=== PATIENT | male | born 1980 ===

== ENCOUNTER 2018-04-16 13:55 | Inpatient (IN) ==
[2018-04-16] MEDS ORDERED: ONDANSETRON 4 MG/2 ML VIAL IV STA (14:52)
[2018-04-16] MEDS ORDERED: HYDROmorphone 2 MG/1 ML VIAL IV STA (14:52)
[2018-04-16] MEDS ORDERED: SODIUM CHLORIDE 0.9% 500 ML IV STA (14:52)
[2018-04-16 15:55] LABS: Basophils # 0.1 10*3/uL (0.0-0.2); Basophils % 0.2 % (0.0-0.8); Hematocrit 42.2 VOL% (42.0-52.0); Hemoglobin 14.6 GM/DL (14.0-18.0); Immature Granulocytes % 1.2 %; Immature Granulocytes Absolute 0.32 #; Lymphocytes # 0.9 10*3/uL (1.4-4.0); Lymphocytes % 3.2 % (21.2-54.2); Mean Corpuscular HGB Conc 34.6 GM/DL (32-36); Mean Corpuscular Hemoglobin 32 PG (27-34); Mean Corpuscular Volume 91.1 FL (87-102); Mean Platelet Volume 10.5 FL (9.6-12.0); Monocytes # 1.2 10*3/uL (0.11-0.8); Monocytes % 4.5 % (1.7-12.7); Neutrophils # 24.6 10*3/uL (1.4-7.4); Neutrophils % 90.9 % (38.7-73.9); Platelet Count 212 T/CUMM (130-400); Red Blood Count 4.63 MC/CUMM (3.8-5.5); Red Cell Distribution Width 13.1 % (9.3-17.3); White Blood Count 27.1 T/CUMM (4-12)
[2018-04-16 16:17] LABS: Albumin 3.2 G/DL (3.4-5.0); Bilirubin,Total 0.6 MG/DL (0.2-1.0); Calcium 8.5 MG/DL (8.5-10.1); Lactic Acid 1.3 MMOL/L (0.4-2.0); Osmolality,Calculated 274.1 MOS/KG (273-304); Potassium 3.8 MMOL/L (3.5-5.1)
[2018-04-16 16:21] LABS: Apearance,Urine CLEAR (Clear); Bilirubin,Urine Negative (Negative); Blood, Urine Negative (Negative); Glucose,Urine (UA) Negative (Negative); Ketones,Urine 5 mg/dL (Negative); Mucus,Urine Occasional /LPF (Occasional); Nitrite,Urine Negative (Negative); Protein,Urine 30 MG/DL; RBC,Urine 1 /HPF (0-4); Urine Color Yellow (Yellow); Urine Specific Gravity 1.019 (1.001-1.035); WBC,Urine 10 /HPF (0-6)
[2018-04-16 17:02] LABS: Lymphocytes 2 % (20-55); Platelet Estimate Normal; Polychromasia Few; Segmented Neutrophils 96 % (50-85); Total Cells Counted 100
[2018-04-16] MEDS ORDERED: HYDROmorphone 2 MG/1 ML VIAL IV PRN (17:12)
[2018-04-16] MEDS ORDERED: ACETAMINOPHEN 500 MG TABLET PO PRN (17:12)
[2018-04-16] MEDS ORDERED: ONDANSETRON 4 MG/2 ML VIAL IV PRN (17:12)
[2018-04-16] MEDS ORDERED: DEXTROSE 50% 25 GM/50 ML VIAL IV PRN (17:12)
[2018-04-16] MEDS ORDERED: GLUCAGON 1 MG VIAL IM PRN (17:12)
[2018-04-16] MEDS ORDERED: cefTRIAXone 1,000 MG VIAL ONE (17:36)
[2018-04-16] MEDS: cefTRIAXone 1,000 MG in SYRINGE 1 EACH IV SCH (17:39)
[2018-04-16] MEDS: SODIUM CHLORIDE 0.9% 1,000 ML IV SCH (17:39)
[2018-04-16 17:57] LABS: INR 1.4; PT Patient Result 14.7 SECS
[2018-04-16] MEDS: CLINDAMYCIN INJ 300 MG in PREMIX 1 EACH IV SCH (18:06)
[2018-04-16] MEDS: INSULIN REGULAR 100 UNIT/ML SUBCUT SCH (18:23)
[2018-04-16] MEDS: AMOXICILLIN/CLAV 875 MG TABLET PO SCH (20:26)
[2018-04-16] MEDS: DEXAMETHASONE 10 MG/1 ML VIAL IV SCH (21:41)
[2018-04-17] MEDS: INSULIN REGULAR 100 UNIT/ML SUBCUT SCH ×4 (00:13→18:15)
[2018-04-17] MEDS: CLINDAMYCIN INJ 300 MG in PREMIX 1 EACH IV SCH ×3 (01:01→18:16)
[2018-04-17] MEDS: cefTRIAXone 1,000 MG in SYRINGE 1 EACH IV SCH (06:22)
[2018-04-17] MEDS: DEXAMETHASONE 10 MG/1 ML VIAL IV SCH ×3 (06:23→21:07)
[2018-04-17 06:24] LABS: Basophils % 0.1 % (0.0-0.8); Hematocrit 41.9 VOL% (42.0-52.0); Hemoglobin 14.7 GM/DL (14.0-18.0); Immature Granulocytes % 1.1 %; Immature Granulocytes Absolute 0.32 #; Lymphocytes # 1.1 10*3/uL (1.4-4.0); Lymphocytes % 3.8 % (21.2-54.2); Mean Corpuscular HGB Conc 35.1 GM/DL (32-36); Mean Corpuscular Hemoglobin 31 PG (27-34); Mean Platelet Volume 10.7 FL (9.6-12.0); Monocytes # 1.1 10*3/uL (0.11-0.8); Monocytes % 3.8 % (1.7-12.7); Neutrophils # 25.6 10*3/uL (1.4-7.4); Neutrophils % 91.2 % (38.7-73.9); Platelet Count 233 T/CUMM (130-400); Red Blood Count 4.71 MC/CUMM (3.8-5.5); White Blood Count 28.1 T/CUMM (4-12)
[2018-04-17] MEDS: SODIUM CHLORIDE 0.9% 1,000 ML IV SCH ×2 (06:28→15:22)
[2018-04-17 06:45] LABS: Osmolality,Calculated 277.8 MOS/KG (273-304); Potassium 3.7 MMOL/L (3.5-5.1)
[2018-04-17 06:46] LABS: Band Neutrophils 3 % (0-10); Hypochromasia Slight; Lymphocytes 2 % (20-55); Platelet Estimate Adequate; Segmented Neutrophils 87 % (50-85); Total Cells Counted 100
[2018-04-17] MEDS ORDERED: DEXTROSE 50% 25 GM/50 ML VIAL IV PRN (08:13)
[2018-04-17] MEDS ORDERED: GLUCAGON 1 MG VIAL IM PRN (08:13)
[2018-04-17] MEDS: AMOXICILLIN/CLAV 875 MG TABLET PO SCH ×2 (09:43→20:05)
[2018-04-17] MEDS: LACTOBACILLUS ACIDOPHILUS/BULGARICUS CAPLET PO SCH (09:43)
[2018-04-18] MEDS: INSULIN REGULAR 100 UNIT/ML SUBCUT SCH ×4 (00:22→17:13)
[2018-04-18] MEDS: CLINDAMYCIN INJ 300 MG in PREMIX 1 EACH IV SCH ×3 (01:08→17:14)
[2018-04-18] MEDS: SODIUM CHLORIDE 0.9% 1,000 ML IV SCH ×2 (01:52→12:26)
[2018-04-18] MEDS: DEXAMETHASONE 10 MG/1 ML VIAL IV SCH ×2 (06:02→14:58)
[2018-04-18] MEDS: LACTOBACILLUS ACIDOPHILUS/BULGARICUS CAPLET PO SCH (09:28)
[2018-04-18] MEDS: AMOXICILLIN/CLAV 875 MG TABLET PO SCH (09:29)
[2018-04-18 16:25] VITALS: BP 122/70
== END 2018-04-18 19:15 | disposition home or self-care (01) | DRG 153 ==
LOC: EDBD → EDUNIT# → N.ED 13:55 → N.EDINP 15:57 → N.3E 18:35
PROVIDERS: ADMIT Otolaryngology; ATTEND Otolaryngology